=== PATIENT | female | born 1995 | race Caucasian/White ===

== ENCOUNTER 2025-06-13 09:32 | Outpatient (CLI) | payer OTHER, SELFPAY | END 2025-06-13 09:33 | disposition home or self-care (01) | LOC: NFLDREF 06-17 02:17 | PROVIDERS: Visit Provider Advanced Practice Midwife | DX: Z34.93 Encounter for supervision of normal pregnancy, unspecified, third trimester (principal) | CPT/HCPCS: 86592 ==

== ENCOUNTER 2025-06-23 07:59 | Outpatient (CLI) | payer OTHER, SELFPAY | END 2025-06-23 08:00 | disposition home or self-care (01) | LOC: NFLDREF 06-26 17:33 | PROVIDERS: Visit Provider Advanced Practice Midwife | DX: R73.09 Other abnormal glucose (principal) | CPT/HCPCS: 82951; 82952 ==

== ENCOUNTER 2025-06-27 09:17 | Outpatient (CLI) | payer OTHER, SELFPAY ==
[2025-06-27 10:21] LABS: Cannabinoid Screen Urine Negative (Negative); Methamphetamines Screen Urine Negative (Negative); Tricyclic Antidepressant Urine Negative (Negative)
== END 2025-06-27 09:18 | disposition home or self-care (01) ==
LOC: NFLDREF 09:18
PROVIDERS: Visit Provider Midwife
DX: Z02.83 Encounter for blood-alcohol and blood-drug test (principal)
CPT/HCPCS: 80306

== ENCOUNTER 2025-07-11 12:57 | Outpatient (CLI) | payer OTHER, SELFPAY ==
--- NOTE | 2025-07-11 13:00 | CRLHL7_ITS ---
For Patients: As a result of the Century Cures Act, medical imaging exams and procedure reports are released immediately into your electronic medical record. You may view this report before your referring provider. If you have questions, please contact your health care provider. OB ULTRASOUND MONIKA by LMP: 09/08/2025. GA: 31 w, 4 d. Single. Comparison: None at this facility. INDICATION: [id number]. TECHNIQUE: Real time grayscale imaging of the fetus was performed. Transabdominal. CERVIX: Not visualized. POSITIONING: Vertex. AMNIOTIC FLUID: 5.2 cm. SDP (N: greater than 2 x 1 cm) PLACENTA: Technique: Transabdominal. PLACENTA POSITION: Posterior. DOPPLER: heart rate: 154 bpm. BIOMETRY: BPD: 8.4 cm. 34 w, 0 d, 94.7%. HC: 30.3 cm. 33 w, 4 d, 69.8%. AC: 28.0 cm. 32 w, 0 d, 61.1%. FL: 6.1 cm. 31 w, 4 d, 34.2%. FL/AC ratio: 21.7%. HC/AC ratio: 1.1. EFW: 1919g. Weight: 4 lbs., 4 oz. age by this US: 32 w, 6 d. MONIKA by this US: 08/30/2025. Percentile by MONIKA: 58.9%. IMPRESSION: 1. Sonographic gestational age 32 weeks 6 days and sonographic due date 08/30/2025. Sonographic age is 9 days ahead of the clinical age. 2. Estimated weight 59th percentile. Abdominal circumference 61st percentile. Eric Zavala M.D. Diagnostic Radiologist [email or web address] MEIR/mckenzie rincon/Dictated by: Eric Zavala MD @ 07/11/2025 2:48:00 PM (Electronically Signed)
== END 2025-07-11 12:58 | disposition home or self-care (01) ==
LOC: US 12:58
PROVIDERS: Visit Provider Midwife
DX: O24.410 Gestational diabetes mellitus in pregnancy, diet controlled (principal); O36.63X0 Maternal care for excessive fetal growth, third trimester, not applicable or unspecified; Z3A.31 31 weeks gestation of pregnancy
CPT/HCPCS: 76815